=== PATIENT | female | born 1960 | race African-American/Black ===

== ENCOUNTER 2023-07-29 06:14 | Day surgery (SDC) | payer OTHER ==
[2023-07-24 15:46] VITALS: BMI 33.6
[2023-07-29] MEDS ORDERED: ONDANSETRON 4 MG/2 ML VIAL IVPUSH PRN (06:58)
[2023-07-29] MEDS ORDERED: oxyCODONE HCL 5 MG TABLET PO PRN ×2 (06:58)
[2023-07-29] MEDS ORDERED: LACTATED RINGERS SOLUTION 1,000 ML IV SCH (07:00)
[2023-07-29] MEDS ORDERED: MIDAZOLAM HCL 2 MG/2 ML SINGLE DOSE VIAL ONE (07:01)
[2023-07-29] MEDS ORDERED: PROPOFOL 20 ML ONE (07:01)
[2023-07-29] MEDS ORDERED: ACETAMINOPHEN INJECTION 100 ML IVPB ONE (07:07)
[2023-07-29] MEDS ORDERED: BUPIVACAINE HCL/PF 0.5% (5 MG/ML) 30 ML VIAL IJ ONE (07:07)
[2023-07-29] MEDS ORDERED: BUPIVACAINE LIPOSOME/PF (EXPAREL) 266 MG/20 ML VIAL ONE (07:07)
[2023-07-29] MEDS ORDERED: SODIUM CHLORIDE 0.9% P/F 10 ML VIAL IJ ONE (07:36)
[2023-07-29] MEDS ORDERED: BUPIVACAINE HCL/PF 0.25% (2.5MG/ML) 10 ML VIAL ONE (07:36)
[2023-07-29] MEDS ORDERED: LIDOCAINE HCL 1%, 10 MG/ML (20ML VIAL) ONE (07:36)
[2023-07-29] MEDS ORDERED: BUPIVACAINE HCL/PF 0.5% (5MG/ML) 10 ML VIAL ONE (07:36)
[2023-07-29] MEDS ORDERED: LIDOCAINE HCL 2% (20ML MULTI-DOSE VIAL) ONE (07:36)
[2023-07-29] MEDS ORDERED: ceFAZolin SODIUM 1 GM VIAL ONE ×2 (08:12)
[2023-07-29] MEDS ORDERED: ONDANSETRON 4 MG/2 ML VIAL ONE (08:59)
[2023-07-29] MEDS ORDERED: KETOROLAC TROMETHAMINE 30 MG/1 ML VIAL ONE (08:59)
[2023-07-29] MEDS ORDERED: FENTANYL CITRATE/PF 50 MCG/ML VIAL ONE (09:30)
[2023-07-29 11:10] VITALS: RESP 18; TEMP 97.5
[2023-07-29 11:46] VITALS: BP 120/64; PULSE 62
== END 2023-07-29 11:46 | disposition home or self-care (01) ==
LOC: FASU 06:14
PROVIDERS: ATTEND Orthopaedic Surgery
PROC: 0QSJ04Z Reposition Right Fibula with Internal Fixation Device, Open Approach (ICD-10-PCS; principal; 2023-07-29 08:25)
DX: S82.61XA Displaced fracture of lateral malleolus of right fibula, initial encounter for closed fracture (principal); X58.XXXA Exposure to other specified factors, initial encounter; Y93.9 Activity, unspecified; Y92.9 Unspecified place or not applicable
CPT/HCPCS: 27792; C1713; 73610-TC-RT-FY; 73630-TC-RT-FY; 94760